=== PATIENT | female | born 1945 | race Asian ===

== ENCOUNTER 2024-10-24 15:07 | Emergency (ER) | payer MEDICARE ==
[~2024-10-24] VITALS: Ht 152.4 cm; Wt 55.3 kg
[2024-10-24 15:34] LABS: BASOPHILS % (AUTO) 0.2 % (0.0-2.0); DIFFERENTIAL COMMENT 0; EOSINOPHILS % (AUTO) 0.3 % (0.0-7.0); HEMATOCRIT 34.9 % (31.2-41.9); HEMOGLOBIN 11.9 g/dL (10.9-14.3); LYMPHOCYTES # (AUTO) 0.6 K/uL (0.8-4.8); LYMPHOCYTES % (AUTO) 14.4 % (20.5-51.5); MEAN CORPUSCULAR HEMOGLOBIN 37.4 uug (24.7-32.8); MEAN CORPUSCULAR HGB CONC 34 g/dL (32.3-35.6); MEAN CORPUSCULAR VOLUME 109.8 fL (75.5-95.3); MONOCYTES # (AUTO) 0.3 K/uL (0.1-1.30); MONOCYTES % (AUTO) 6.1 % (0.0-11.0); NEUTROPHILS # (AUTO) 3.3 K/uL (1.8-8.9); PLATELET COUNT (AUTO) 154 K/uL (179-408); RED BLOOD CELL COUNT(AUTO) 3.18 MIL/uL (3.63-4.92); RED CELL DISTRIBUTION WIDTH 22.7 % (12.3-17.7); WHITE BLOOD COUNT (AUTO) 4.2 K/uL (3.8-11.8)
[2024-10-24 15:43] LABS: CALCIUM 10.2 mg/dL (8.5-10.1); CARBON DIOXIDE 27 mmol/L (21-32); CHLORIDE 100 mmol/L (98-107); CREATININE 0.8 mg/dL (0.6-1.3); GLUCOSE 134 mg/dL (74-106); POTASSIUM 4.4 mmol/L (3.5-5.1); SODIUM SERUM 135 mmol/L (136-145); UREA NITROGEN, BLOOD 23 mg/dL (7-18)
[2024-10-24] MEDS ORDERED: FOLI1TAB27 PO (15:46)
[2024-10-24] MEDS ORDERED: FERR-56 PO (15:46)
[2024-10-24] MEDS ORDERED: CAPE500T PO ×2 (15:46)
[2024-10-24] MEDS ORDERED: AMLO5TAB4 PO (15:46)
[2024-10-24] MEDS ORDERED: METH2.5T PO (15:46)
[2024-10-24] MEDS ORDERED: HYDR200T81 PO (15:46)
[2024-10-24 16:02] LABS: ALANINE AMINOTRANSFERASE 28 U/L (14-59); ALBUMIN 3.8 g/dL (3.4-5.0); ALKALINE PHOSPHATASE 136 U/L (50-136); ASPARTATE AMINOTRANSFERASE 23 U/L (15-37); BILIRUBIN,DIRECT 0.2 mg/dL (0.0-0.2); BILIRUBIN,TOTAL 0.6 mg/dL (0.2-1.0); TOTAL PROTEIN, SERUM 7.2 g/dL (6.4-8.2)
[2024-10-24] MEDS: MORPHINE SULFATE 4 MG/1 ML DISP.SYRIN IV ONE (16:39)
[2024-10-24] MEDS: ONDANSETRON 4 MG/2 ML VIAL IV ONE (16:40)
[2024-10-24] MEDS ORDERED: IBUPROFEN 400 MG TABLET ONE (16:49)
[2024-10-24] MEDS: IBUPROFEN 800 MG TABLET PO ONE (16:56)
[2024-10-24 17:12] VITALS: BP 157/70; O2SAT 96
== END 2024-10-24 17:13 | disposition left against medical advice (07) ==
LOC: ER 15:11
DX: J98.4 Other disorders of lung (principal); C18.9 Malignant neoplasm of colon, unspecified; C34.90 Malignant neoplasm of unspecified part of unspecified bronchus or lung; I10 Essential (primary) hypertension; M19.90 Unspecified osteoarthritis, unspecified site; Z79.899 Other long term (current) drug therapy; Z85.118 Personal history of other malignant neoplasm of bronchus and lung; Z86.73 Personal history of transient ischemic attack (TIA), and cerebral infarction without residual deficits; Z88.1 Allergy status to other antibiotic agents
CPT/HCPCS: 36415; 71045; 83605; 84484; 85025; 85730; 87040; A4606; A4663